=== PATIENT | female | born 1945 | race Caucasian/White ===

== ENCOUNTER → 2016-12-13 | Outpatient (CLI) | payer BC, MEDICARE ==
[~2016-12-13] MED LIST: ATIVAN0.5 MG PO; BENAZEPRIL HCL40 MG PO; HYDROCODON-ACE1 EAC5 PO; HYDROCODON-ACE1 EAC7 PO; LORAZEPAM0.5 MG PO; LORAZEPAM1 MG PO; NAPROSYN500 MG PO; NAPROXEN PO; NAPROXEN500 M1 PO; OLMESARTAN-HCT1 EAC1 PO; REQUIP3 MG PO; REQUIP4 MG PO
--- NOTE | ~2016-12-13 | CT55 ---
[facility] A Service of [facility] & [facility] RADIOLOGY TEXT RESULTS PATIENT: ULICES MISTRY LOCATION: [facility] : 46 UNIT #: [id number] AGE: [address]: Lc Shah MD SEX: F ORDER DR: [id number] [address] [address] [id number] O MR#: [id number] Acc #: [id number] NAME: ULICES MISTRY. : 1945 SEX: F STUDY DATE/TIME: 12/13/2016 12:35 UNIT: [facility] ROOM: STUDY DESCRIPTION: CT Chest W Con Attending Physician: Lc Shah M.D. Referring Physician: Lc Shah M.D. Ordering Physician: Lc Shah M.D. Primary Care Physician: Ron Soriano M.D. MEDICAL IMAGING REPORT This report is preliminary unless electronic signature is present. EXAM CT of the chest with contrast. INDICATIONS Abnormal chest radiograph demonstrating a pulmonary nodule. This radiograph from December 06, [address] exam was performed with one or more of the following radiation dose reduction techniques: automatic exposure control, adjustment of mA and/or kV according to patient size, and iterative reconstruction. FINDINGS Within the right upper lobe, this patient has a 2.4 x 2.1 cm nodule that has irregularly marginated borders and is worrisome for malignancy most likely primary bronchogenic. Background emphysematous changes are noted. 2 - 3 mm nodules are seen adjacent to the fissure. One within the right middle lobe and the other within the right lower lobe. No additional pulmonary nodules or masses are seen. There is no pleural or pericardial effusion. There is a heterogeneous appearance to the thyroid gland likely reflecting the presence of some underlying nodules. Thoracic aorta measures within normal size limits. There is no evidence of dissection. Mediastinal and hilar nodes do appear somewhat prominent, for example, a precarinal node measures 1.6 x 0.9 cm. Right hilar node measures 1.5 x 1.0 cm. These nodules are indeterminate in the setting of pulmonary mass. Images through the upper abdomen demonstrate a separate origin of the right hepatic artery from the celiac axis which is a normal anatomic variant. There is some atherosclerotic involvement of the abdominal aorta which extends into the origins of the renal arteries. No acute abnormalities are seen within the upper abdomen. Review of bony windows does not demonstrate any aggressive osseous abnormalities. [facility]. [facility] A Service of [facility] & [facility] RADIOLOGY TEXT RESULTS PATIENT: ULICES MISTRY LOCATION: [facility] : 46 UNIT #: [id number] AGE: [address]: Lc Shah MD SEX: F ORDER DR: IMPRESSION 1. This patient has an irregularly marginated nodule within the right upper lobe measuring up to 2.4 x 2.1 cm. Its appearance is extremely worrisome for malignancy, most likely primary bronchogenic given background emphysematous changes. There are some prominent mediastinal and hilar nodes which are indeterminate in the setting. Pulmonary mass PET may allow for further assessment. 2. Please see the body of the report for any other additional incidental findings. Dictated by... Batsheva Pérez M.D. THIS IS AN ELECTRONICALLY VERIFIED REPORT Batsheva Pérez M.D. at 12/15/2016 12:23 PM AFF/ea TD: 12/13/2016 19:24 JOB #: [id number] MEDICAL IMAGING REPORT Page 1 of 1
[2016-12-13 12:30] LABS: POC - CREATININE 0.68 mg/dL (0.44-1.03); POC - GFR >60.0 mL/min (>60)
== END | disposition home or self-care (01) ==
LOC: SCT 12:16
PROVIDERS: Family Medicine
DX: R91.1 Solitary pulmonary nodule (principal)
CPT/HCPCS: 71260; 82565; Q9967

== ENCOUNTER → 2017-01-09 | Outpatient (CLI) | payer BC, MEDICARE ==
--- NOTE | ~2017-01-09 | CT134 ---
[facility] A Service of [facility] & [facility] RADIOLOGY TEXT RESULTS PATIENT: ULICES MISTRY LOCATION: [facility] : 46 UNIT #: [id number] AGE: [address]: Salvador Myers MD SEX: F ORDER DR: [id number] [facility] [address] [place], [place] [address] [id number] O MR#: [id number] Acc #: [id number] NAME: ULICES MISTRY. : 1945 SEX: F STUDY DATE/TIME: 01/09/2017 10:51 UNIT: [facility] ROOM: STUDY DESCRIPTION: CT Guide Attending Physician: Salvador Myers M.D. Referring Physician: Salvador Myers M.D. Ordering Physician: Salvador Myers M.D. Primary Care Physician: Ron Soriano M.D. MEDICAL IMAGING REPORT This report is preliminary unless electronic signature is present EXAM CT-guided biopsy of a right T6 transverse process lesion 01/09/2017 INDICATIONS 71-year-old female with history of PET positive lung nodule and thoracic spine bone lesion with findings concerning for metastatic lung cancer. Biopsy of the lesion in T6 transverse process on the right was requested. MEDICATIONS: IV Versed and Fentanyl were utilized for conscious sedation. Approximately 45 minutes of sedation time was monitored by appropriately credentialed radiology nursing staff. PROCEDURE The risks, benefits and alternatives of the procedure were discussed with the patient and informed consent was obtained. In the procedure room a time-out was performed confirming correct patient and procedure. All elements of maximum sterile-barrier technique utilized according guidelines appropriate for the procedure. TECHNIQUE/FINDINGS The patient was placed in the prone position on the CT scanner and preliminary CT scan of thoracic spine was performed. This identified the mixed lytic and sclerotic lesion in the T6 vertebral body transverse process on the right. The overlying skin was prepped and draped in the usual sterile fashion. 1% lidocaine was utilized to anesthetize the skin and underlying subcutaneous tissues. Next under CT guidance an initial biopsy was performed using a Ostycut bone biopsy needle with return of some fragmented tissue which was sent to pathology. In order to try to get a better sample a second biopsy was performed using an 18-gauge core biopsy needle through a 17-gauge guide needle which also yielded some scant fragments of tissue. Tissue samples were submitted to pathology. The needles were removed and a sterile STS. [facility] A Service of [facility] RADIOLOGY TEXT RESULTS PATIENT: ULICES MISTRY LOCATION: [facility] : 46 UNIT #: [id number] AGE: [address]: Salvador Myers MD SEX: F ORDER DR: dressing was applied. The patient tolerated the procedure well without immediate complications. IMPRESSION Technically successful CT guided T6 transverse process bone biopsy. Dictated by... Zuhair Singleton M.D. THIS IS AN ELECTRONICALLY VERIFIED REPORT Zuhair Singleton M.D. at 01/10/2017 9:33 AM Amita TD: 01/09/2017 16:23 JOB #: [id number] MEDICAL IMAGING REPORT Page 1 of 1 COPY
--- NOTE | ~2017-01-09 | MR81 ---
[facility] A Service of [facility] & [facility] RADIOLOGY TEXT RESULTS PATIENT: ULICES MISTRY LOCATION: [facility] : 46 UNIT #: [id number] AGE: [address]: Salvador Myers MD SEX: F ORDER DR: [id number] [facility] [address] [place], [place] [address] [id number] O MR#: [id number] Acc #: [id number] NAME: ULICES MISTRY. : 1945 SEX: F STUDY DATE/TIME: 01/09/2017 8:22 UNIT: [facility] ROOM: STUDY DESCRIPTION: MR Hip WWo Contrast Rt Attending Physician: Salvador Myers M.D. Referring Physician: Salvador Myers M.D. Ordering Physician: Salvador Myers M.D. Primary Care Physician: Ron Soriano M.D. MRI CENTER REPORT This report is preliminary unless electronic signature is present. EXAM MRI of the hips and pelvis. HISTORY 71-year-old female with recently detected lung nodule. Abnormal PET/CT showing abnormal increased uptake about the right total hip arthroplasty. Currently has no pain in the hip region. COMPARISON STUDIES PET/CT 12/27/2016 and MRI of the pelvis 03/08/2013. FINDINGS Multiplanar, multiecho imaging was performed of the hips and pelvis utilizing a high field magnet and dedicated protocol. Metal artifact reduction sequences were employed. The patient demonstrates bilateral total hip arthroplasties. The left total hip arthroplasty appears in expected position and alignment. No significant periprosthetic fluid collections are identified. No evidence of edema. The right hip prosthesis demonstrates a moderate amount of cystic change and edema along the superior aspect of the acetabular component which does not appear significantly progressed from the patient's study in 2012. The acetabular component also does not appear significantly changed in position or alignment, though this should be correlated with conventional radiographs. The femoral component appears in expected position and alignment. There are 2 prominent fluid collections about the right total hip arthroplasty. 1 is anterior to the hip joint and is along the iliopsoas tendon and lies just medial to the tendon and deep to the femoral vessels. This collection was present on the patient's study in 2013 and is not significantly changed. This measures about 2.5 x 3.6 x about 3.3 cm in greatest transverse dimensions. This may represent a component of an iliopsoas bursitis. There is also a small amount of fluid lying directly anterior to the right hip arthroplasty at the level of the STS. [facility] A Service of [facility] RADIOLOGY TEXT RESULTS PATIENT: ULICES MISTRY LOCATION: [facility] : 46 UNIT #: [id number] AGE: [address]: Salvador Myers MD SEX: F ORDER DR: pseudocapsule and joint. A larger collection is seen within the anterior thigh, but probably communicates to the pseudocapsule. This collection measures a maximum of 3.6 x 4 cm in transverse dimensions and over 11 cm in cephalocaudal dimension. I suspect this represents fluid extending from the pseudocapsule of the arthroplasty and this does represent a new finding from the 2013 MRI but I suspect represents progression of the pseudocapsule joint effusion as seen in the 2013 study and the overall amount of fluid surrounding the hip arthroplasty appears increased relative to the 2013 study. Again, this could be related to underlying infection or loosening but no gross evidence of arthroplasty failure. Patient currently asymptomatic in this region. If elected, percutaneous aspiration of the proximal thigh fluid could be performed as this lies just deep to the sartorius and rectus femoris musculature. Interval healing of the patient's sacral and pubic symphysial fractures with no residual marrow edema. Internal pelvic structures unremarkable. Patient post hysterectomy. Mild atrophy of the right hip and gluteal musculature. IMPRESSION 1. Status post bilateral total hip arthroplasties. The left hip arthroplasty is unremarkable. The right hip arthroplasty demonstrates a moderate amount of cystic change along the weightbearing aspect of the right acetabulum which does not appear significantly increased from the 2013 MRI. As an isolated finding, this would be concerning for possible loosening of the acetabular component, but no gross evidence of instrumentation failure. Correlation with conventional radiographs may be better to assess overall alignment of the component. Clearly the femoral component appears intact. 2. Prominent fluid collections about the right total hip arthroplasty. An anterior collection along the iliopsoas tendon does not appear significantly changed from the 2013 study and may represent a component of iliopsoas bursitis or chronic collection. The fluid within the pseudocapsule as well as a prominent fluid collection tracking into the anterior proximal thigh is increased from the 2013 study. The thigh collection is clearly a new finding and is quite sizable and may account for the increased uptake on recent FDG PET scan. The fluid collections enhance postcontrast but this is a nonspecific finding around the joint. Again, as an isolated finding, this could support underlying loosening or possible infection of the arthroplasty component, though clinically the patient appears to be asymptomatic. If elected, aspiration of the thigh collection could be performed as this has relatively simple to access along the anterior thigh at its largest size measuring about 4 cm in greatest dimension. 3. No findings to suggest osseous metastatic disease to the pelvis. 4. Interval healing of the patient's sacral and symphysial fractures as noted on the 2013 study. [facility] A Service of [facility] RADIOLOGY TEXT RESULTS PATIENT: ULICES MISTRY LOCATION: [facility] : 46 UNIT #: [id number] AGE: [address]: Salvador Myers MD SEX: F ORDER DR: Dictated by... Valerie Singleton M.D. THIS IS AN ELECTRONICALLY VERIFIED REPORT Valerie Singleton M.D. at 01/13/2017 1:19 PM RADHIKA/masha TD: 01/13/2017 09:30 JOB #: [id number] MRI CENTER REPORT Page 1 of 1 COPY
[2017-01-09 09:50] LABS: HEMATOCRIT 34.7 % (35.0-45.0); HEMOGLOBIN 11.8 gm/dL (12.0-16.0); MEAN CELL VOLUME 86.4 FL (83-96); MEAN CORPUSCULAR HEMOGLOBIN 29.4 PG (28-34); MEAN PLATELET VOLUME 7.3 FL (6.5-11.5); RED BLOOD COUNT 4.02 X10e (3.90-5.30); RED CELL DISTRIBUTION WIDTH 14.8 % (11.0-15.5); WHITE BLOOD COUNT 6.6 X10e3 (4.0-10.5)
[2017-01-09 10:05] LABS: PARTIAL THROMBOPLASTIN TIME 27.2 SECONDS (23.5-31.3); PROTHROMBIN TIME (PATIENT) 10.5 SECONDS (9.6-11.5)
== END | disposition home or self-care (01) ==
LOC: CMRI 06:52
PROVIDERS: Internal Medicine Hematology & Oncology
DX: C79.51 Secondary malignant neoplasm of bone (principal); S32.10XD Unspecified fracture of sacrum, subsequent encounter for fracture with routine healing; S32.509D Unspecified fracture of unspecified pubis, subsequent encounter for fracture with routine healing; C34.90 Malignant neoplasm of unspecified part of unspecified bronchus or lung; M25.551 Pain in right hip; Z96.643 Presence of artificial hip joint, bilateral
CPT/HCPCS: 36415; 73723; 77012; 85027; 85610; 85730; 88173; 88307; 88342; A9577; J2250; J3010

== ENCOUNTER → 2017-01-15 | Outpatient (CLI) | payer BC, MEDICARE ==
--- NOTE | ~2017-01-15 | MR17 ---
[facility] A Service of [facility] & [facility] RADIOLOGY TEXT RESULTS PATIENT: ULICES MISTRY LOCATION: [facility] : 46 UNIT #: [id number] AGE: [address]: Salvador Myers MD SEX: F ORDER DR: [id number] [facility] [address] [place], [place] [address] [id number] O MR#: [id number] Acc #: [id number] NAME: ULICES MISTRY. : 1945 SEX: F STUDY DATE/TIME: 01/15/2017 16:26 UNIT: [facility] ROOM: STUDY DESCRIPTION: MR Brain WWo Contrast Attending Physician: Salvador Myers M.D. Referring Physician: Salvador Myers M.D. Ordering Physician: Salvador Myers M.D. Primary Care Physician: Ron Soriano M.D. MEDICAL IMAGING REPORT This report is preliminary unless electronic signature is present REVISED REPORT SEE ADDENDUM EXAM MRI of the brain with and without contrast dated 01/15/[address] head without contrast dated 03/08/2013. HISTORY Dizziness for 2 weeks. Patient was diagnosed with lung cancer 2 weeks ago. Evaluate for metastasis. FINDINGS Multi-sequence, multiplanar imaging of the brain was obtained with and without contrast. GFR measured greater than 60. 11 mL of MultiHance was administered intravenously. There is a peripherally enhancing 2.7 x 3.0 cm mass in the left frontotemporal region straddling the left sylvian fissure and sulcus. There is some peripheral hypointense varying signal change noted which could represent mild calcification or hemorrhage. There is surrounding vasogenic edema. Nonenhancing tiny 1-2 hyperintense T2 signal lesions are noted elsewhere in the white matter of bifrontal lobes. No acute stroke, hydrocephalus. There is midline shift to the right of 3 mm. Thick slices through the sella and the pituitary are within normal limits. Visualized cervical spine demonstrates anterior cervical fusion with hardware from C4 inferiorly, incompletely evaluated on the current study. S-shaped nasal septal deviation is seen. Paranasal sinuses, orbits and the ocular structures are unremarkable. Mild bilateral mastoid mucosal thickening is noted. [facility] A Service of [facility] RADIOLOGY TEXT RESULTS PATIENT: ULICES MISTRY LOCATION: [facility] : 46 UNIT #: [id number] AGE: [address]: Salvador Myers MD SEX: F ORDER DR: IMPRESSION 1. There is a mass with peripheral nodular enhancement measuring 2.7 x 3.0 x 2.5 cm in the left frontotemporal lobes straddling the left sylvian fissure and circular sulcus. It is in keeping with metastasis given the history of lung cancer. It has some decreased peripheral hypointense gradient signal. It could represent mild calcification or hemorrhage. 2. There is a 3 mm mild midline shift to the right. 3. Attempts are made to contact Dr. Salvador Myers at 3:30 p.m. on 01/16/2017. Dictated by... Conor Barreto M.D. CPR/aa TD: 01/16/2017 16:07 JOB #: [id number] ADDENDUM Findings were discussed with Dr. Terrell at 3:35 p.m.on 01/16/2017. JOB: [id number] Dictated by... Conor Barreto M.D. THIS IS AN ELECTRONICALLY VERIFIED REPORT Conor Barreto M.D. at 01/18/2017 12:50 PM CPR/pcl TD: 01/16/2017 16:12 JOB #: [id number] CC: Sovera/invision Please Delete MEDICAL IMAGING REPORT Page 1 of 1 COPY
== END | disposition home or self-care (01) ==
LOC: CMRI 15:20
DX: C34.90 Malignant neoplasm of unspecified part of unspecified bronchus or lung (principal); R91.1 Solitary pulmonary nodule; M25.551 Pain in right hip; M54.6 Pain in thoracic spine; G93.89 Other specified disorders of brain
CPT/HCPCS: 70553; A9577

== ENCOUNTER → 2017-01-21 | Outpatient (CLI) | payer BC, MEDICARE ==
--- NOTE | ~2017-01-21 | XA91 ---
[facility] A Service of [facility] RADIOLOGY TEXT RESULTS PATIENT: ULICES MISTRY LOCATION: [facility] : 47 UNIT #: [id number] AGE: [address]: Salvador Myers MD SEX: F ORDER DR: [id number] [facility] [address] [place], [place] [address] [id number] O MR#: [id number] Acc #: [id number] NAME: ULICES MISTRY. : 1945 SEX: F STUDY DATE/TIME: 01/21/2017 8:41 UNIT: [facility] ROOM: STUDY DESCRIPTION: XA CVC Tunneled W Port Attending Physician: Salvador Myers M.D. Ordering Physician: Salvador Myers M.D. Primary Care Physician: Ron Soriano M.D. MEDICAL IMAGING REPORT This report is preliminary unless electronic signature is present EXAM Mediport placement. INDICATIONS Metastatic lung cancer. Patient requires IV access for IV chemotherapy. The procedure's explained to the patient including risks, benefits, potential complications, potential for alternative forms of treatment. Informed consent was obtained and prior to initiating the procedure a formal time-out procedure was performed. Using all elements maximal sterile barrier technique including hand hygiene, caps, sterile gowns, gloves and masks, the right neck was prepped with 2% Chlorhexidine cutaneous antisepsis and covered with a large sheet. Real-time sterile ultrasound guidance was used to localize the right internal jugular vein which was found be patent and compressible. A hard copy ultrasound image was obtained. After local anesthesia with 1% Xylocaine the vein was punctured using real-time sterile ultrasound guidance and an 0.018 guidewire was advanced into the superior vena cava under fluoroscopic guidance. Micropuncture sheath was placed and J wire was advanced into the inferior vena cava. At this point I turned attention to creation of the port pocket. Skin and T8 tissues were anesthetized with buffered lidocaine and lidocaine with epinephrine. Small skin incision was made, port pocket was created using a combination of blunt and sharp dissection. Port was seated within the pocket and secured using 2 3-0 Vicryl sutures. Catheter was then tunneled up through the right anterolateral chest wall, to the insertion site of the neck. Peel-away sheath was advanced over the wire. Catheter was measured and trimmed and was advanced through the peel-away sheath and positioned within the superior vena cava. Following placement of the catheter it flushed and aspirated easily. Deep layer of the port pocket was closed using lathe puller 3-0 Vicryl sutures and a running 4-0 Monocryl suture was STS. [facility] A Service of [facility] RADIOLOGY TEXT RESULTS PATIENT: ULICES MISTRY LOCATION: [facility] : 46 UNIT #: [id number] AGE: [address]: Salvador Myers MD SEX: F ORDER DR: used close the skin. A single 4-0 Monocryl suture was used to close the insertion site at the neck and Dermabond was applied to both wounds to act as a dressing. Position of the catheter was confirmed with a radiographic image. Total fluoroscopy time 0.1 minutes AK was 1 mGy, patient did receive conscious sedation consisting of 7 mg of Versed and 150 mcg of Fentanyl. Continuous monitoring for a total 45 minutes was provided by the IVR nurse. ours IMPRESSION Successful placement right frontal jugular vein Mediport which terminates within the superior vena cava. This catheter is ready for immediate use. Dictated by... Batsheva Pérez M.D. THIS IS AN ELECTRONICALLY VERIFIED REPORT Batsheva Pérez M.D. at 01/22/2017 5:21 PM TROY/mauro TD: 01/22/2017 08:45 JOB #: [id number] MEDICAL IMAGING REPORT Page 1 of 1 COPY
[2017-01-21 08:07] LABS: HEMATOCRIT 36.6 % (35.0-45.0); HEMOGLOBIN 12.4 gm/dL (12.0-16.0); MEAN CELL VOLUME 87.1 FL (83-96); MEAN CORPUSCULAR HEMOGLOBIN 29.4 PG (28-34); MEAN CORPUSCULAR HGB CONC 33.7 g/dL (30-36); MEAN PLATELET VOLUME 7.8 FL (6.5-11.5); RED BLOOD COUNT 4.21 X10e (3.90-5.30); RED CELL DISTRIBUTION WIDTH 14.9 % (11.0-15.5); WHITE BLOOD COUNT 6.3 X10e3 (4.0-10.5)
[2017-01-21 08:23] LABS: PARTIAL THROMBOPLASTIN TIME 26.3 SECONDS (23.5-31.3); PROTHROMBIN TIME (PATIENT) 10.1 SECONDS (9.6-11.5)
== END | disposition home or self-care (01) ==
LOC: CIVR 07:40
PROVIDERS: Internal Medicine Hematology & Oncology
PROC: 02HV33Z Insertion of Infusion Device into Superior Vena Cava, Percutaneous Approach (ICD-10-PCS; principal; 2017-01-21)
DX: Z45.2 Encounter for adjustment and management of vascular access device (principal); R91.1 Solitary pulmonary nodule; M25.551 Pain in right hip; M54.6 Pain in thoracic spine; C34.12 Malignant neoplasm of upper lobe, left bronchus or lung; I10 Essential (primary) hypertension; M48.00 Spinal stenosis, site unspecified; F17.200 Nicotine dependence, unspecified, uncomplicated; M32.9 Systemic lupus erythematosus, unspecified; Z79.1 Long term (current) use of non-steroidal anti-inflammatories (NSAID); Z79.899 Other long term (current) drug therapy; Z80.6 Family history of leukemia; Z80.3 Family history of malignant neoplasm of breast; Z96.643 Presence of artificial hip joint, bilateral; Z88.0 Allergy status to penicillin
CPT/HCPCS: 36415; 76937; 77001; 85027; 85610; 85730; C1788; C1894; J1642; J2250; J3010

== ENCOUNTER → 2017-03-20 | Outpatient (CLI) | payer BC, MEDICARE ==
--- NOTE | ~2017-03-20 | CT5 ---
[facility] A Service of [facility] & [facility] RADIOLOGY TEXT RESULTS PATIENT: ULICES MISTRY [facility] : 46 UNIT #: [id number] AGE: [address]: Salvador Myers MD SEX: F ORDER DR: [id number] [facility] [address] [place], [place] [address] [id number] O MR#: [id number] Acc #: [id number] NAME: UILCES MISTRY : 1945 SEX: F STUDY DATE/TIME: 03/20/2017 9:06 UNIT: [facility] ROOM: STUDY DESCRIPTION: CT Abdomen W Cont Attending Physician: Salvador Myers M.D. Ordering Physician: Salvador Myers M.D. Primary Care Physician: Ron Soriano M.D. MEDICAL IMAGING REPORT This report is preliminary unless electronic signature is present EXAM CT abdomen with contrast. HISTORY 71-year-old female with a malignant neoplasm of the left upper lobe bronchus. Surveillance for metastatic disease. COMPARISON Head CT 12/27/2016 TECHNIQUE Axial images were performed through the abdomen following IV contrast. Oral contrast also administered. Multiplanar reconstructed images were reviewed at a work station. This CT exam was performed with one or more of the following radiation dose reduction techniques: automatic exposure control, adjustment of mA and/or kV according to patient size, and iterative reconstruction. FINDINGS Lung bases unremarkable. Liver, spleen, gallbladder, pancreas, kidneys and adrenal glands unremarkable. Visualized GI tract unremarkable. Mild aortoiliac atherosclerotic changes. Osseous structures remarkable for L4-5 degenerative disc disease and also L3-4 degenerative disc changes. Mild to moderate spinal stenosis L3-4, L4-5. Sclerotic bone lesion is seen within the L2 vertebral body to the left of midline, measuring about 9 mm, and there are 2 similar sclerotic lesions within the right iliac bone, the larger measuring 1.4 cm, and the smaller measuring about 9 mm. These could represent bone islands; however, in the setting of known malignancy, sclerotic metastasis is not excluded. These appear unchanged when compared to patient's PET/CT of 12/27/2016 and do not appear to be PET-avid, and, therefore, metastatic disease is considered less likely. IMPRESSION STS. [facility] A Service of [facility] RADIOLOGY TEXT RESULTS PATIENT: ULICES MISTRY LOCATION: [facility] : 46 UNIT #: [id number] AGE: [address]: Salvador Myers MD SEX: F ORDER DR: 1. No evidence of metastatic disease to the abdomen. 2. Stable sclerotic bone lesions, 2 in the right iliac bone and 1 within the L2 vertebral body. Their stability and lack of PET-avidity support a benign etiology. Dictated by... Valerie Singleton M.D. THIS IS AN ELECTRONICALLY VERIFIED REPORT aVlerie Singleton M.D. at 03/21/2017 7:26 AM RADHIKA/marti TD: 03/20/2017 18:57 JOB #: [id number] MEDICAL IMAGING REPORT Page 1 of 1 COPY
--- NOTE | ~2017-03-20 | CT55 ---
[facility] A Service of [facility] & [facility] RADIOLOGY TEXT RESULTS PATIENT: ULICES MISTRY LOCATION: [facility] : 47 UNIT #: [id number] AGE: [address]: Salvador Myers MD SEX: F ORDER DR: [id number] [facility] [address] [place], [place] [address] [id number] O MR#: [id number] Acc #: [id number] NAME: ULICES MISTRY. : 1945 SEX: F STUDY DATE/TIME: 03/20/2017 9:06 UNIT: [facility] ROOM: STUDY DESCRIPTION: CT Chest W Con Attending Physician: Salvador Myers M.D. Ordering Physician: Salvador Myers M.D. Primary Care Physician: Ron Soriano M.D. MEDICAL IMAGING REPORT This report is preliminary unless electronic signature is present EXAM CT scan of the chest with contrast INDICATION Malignant neoplasm of upper lobe left side. Pain in chest. Followup cancer. COMPARISON STUDIES 12/13/2016 TECHNIQUE The patient was given 100 mL of Isovue 370 and axial 5 mm images were obtained through the chest. Sagittal and coronal reconstructions were generated. This CT exam was performed with one or more of the following radiation dose reduction techniques: automatic exposure control, adjustment of mA and/or kV according to patient size, and iterative reconstruction. FINDINGS There is a edam-k-iovfmgiv present with its tip in the superior vena cava. There was a right upper lobe mass very close to the mediastinum that measured about 2 cm in diameter. That has decreased in size. Now there is some atelectasis extending anteriorly from this region and this obscures at least 1 border. I believe the mass is now 1.7 cm in size and the opposite direction it is about 1 cm whereas previously it was closer to 1.4. Atelectasis extends anteriorly from this lesion. There is a separate abdomen CT scan. There is a slightly enlarged lymph node in the pretracheal region. It is unchanged from the prior study. It is about 14 x 9 mm. The bones are unremarkable. The lungs are otherwise clear. IMPRESSION STS. [facility] A Service of [facility] & [facility] RADIOLOGY TEXT RESULTS PATIENT: ULICES MISTRY LOCATION: [facility] : [birth year] UNIT #: [id number] AGE: [address]: Salvador Myers MD SEX: F ORDER DR: 1. The right upper lobe mass noted 12/13/2016 has clearly diminished in size. I would estimate it is about 50% as big as it was previously. There is now some atelectasis extending anteriorly from the mass. 2. Stable slightly enlarged lymph node in the pretracheal region. 3. Otherwise the study is negative. Dictated by... Hitesh Seaman M.D. THIS IS AN ELECTRONICALLY VERIFIED REPORT Hitesh Seaman M.D. at 03/21/2017 9:42 AM William TD: 03/20/2017 18:43 JOB #: [id number] MEDICAL IMAGING REPORT Page 1 of 1 COPY
[2017-03-20 08:11] LABS: POC - CREATININE 0.86 mg/dL (0.44-1.03); POC - GFR >60.0 mL/min (>60)
== END | disposition home or self-care (01) ==
LOC: CCAT 07:33
PROVIDERS: Internal Medicine Hematology & Oncology
DX: C34.12 Malignant neoplasm of upper lobe, left bronchus or lung (principal); R91.1 Solitary pulmonary nodule; M89.9 Disorder of bone, unspecified; R59.9 Enlarged lymph nodes, unspecified
CPT/HCPCS: 71260; 74160; 82565; Q9967

== ENCOUNTER → 2017-04-17 | Outpatient (CLI) | payer BC, MEDICARE ==
--- NOTE | ~2017-04-17 | MR17 ---
[facility] A Service of [facility] RADIOLOGY TEXT RESULTS PATIENT: ULICES MISTRY LOCATION: [facility] : 46 UNIT #: [id number] AGE: [address]: Salvador Myers MD SEX: F ORDER DR: [id number] [facility] [address] [place], [place] [address] [id number] O MR#: [id number] Acc #: [id number] NAME: ULICES MISTRY. : 1945 SEX: F STUDY DATE/TIME: 04/17/2017 8:08 UNIT: [facility] ROOM: STUDY DESCRIPTION: MR Brain WWo Contrast Attending Physician: Salvador Myers M.D. Referring Physician: Salvador Myers M.D. Ordering Physician: Salvador Myers M.D. Primary Care Physician: Ron Soriano M.D. MRI CENTER REPORT This report is preliminary unless electronic signature is present. EXAM Brain MR with and without contrast 04/17/2017 COMPARISON Prior brain MRI dated 01/15/2017. PROCEDURE Routine brain MR with and without contrast. HISTORY History of lung cancer recently completed chemotherapy now with complaint of 1-week history of dizziness. Previously identified intracranial metastatic disease. FINDINGS Redemonstrated left temporal lobe mass. The lesion is rim-enhancing and somewhat cystic in appearance, and measures about 3.6 x 3.4 x 2.3 cm compared to about 3.2 x 2.8 x 2.3 cm previously. It appears slightly larger in size, and there is increased surrounding vasogenic edema. Rightward midline shift is stable at about 3-4 mm. No new lesions are seen. There is no evidence of intracranial hemorrhage. There is no evidence of acute ischemia. Patent flow voids are seen in the cerebral vessels. IMPRESSION Left temporal lobe cystic appearing presumed metastatic lesion with surrounding vasogenic edema both slightly larger in size and with mildly to moderately increased surrounding vasogenic edema. No new lesions are seen. [facility] A Service of [facility] RADIOLOGY TEXT RESULTS PATIENT: ULICES MISTRY LOCATION: [facility] : 46 UNIT #: [id number] AGE: [address]: Salvador Myers MD SEX: F ORDER DR: Dictated by... Osmany Farrar M.D. THIS IS AN ELECTRONICALLY VERIFIED REPORT Osmany Farrar M.D. at 04/22/2017 5:21 PM YANDEL/solomon TD: 04/18/2017 11:23 JOB #: [id number] MRI CENTER REPORT Page 1 of 1 COPY
== END | disposition home or self-care (01) ==
LOC: CMRI 07:47
DX: Z08 Encounter for follow-up examination after completed treatment for malignant neoplasm (principal); M54.6 Pain in thoracic spine; M25.551 Pain in right hip; R91.1 Solitary pulmonary nodule; G93.6 Cerebral edema; G93.0 Cerebral cysts; Z85.118 Personal history of other malignant neoplasm of bronchus and lung
CPT/HCPCS: 70553; A9577

== ENCOUNTER → 2017-05-20 | Outpatient (CLI) | payer BC, MEDICARE ==
--- NOTE | ~2017-05-20 | CT5 ---
[facility] A Service of [facility] & [facility] RADIOLOGY TEXT RESULTS PATIENT: ULICES MISTRY LOCATION: [facility] : 46 UNIT #: [id number] AGE: [address]: Salvador Myers MD SEX: F ORDER DR: [id number] [facility] [address] [place], [place] [address] [id number] O MR#: [id number] Acc #: [id number] NAME: ULICES MISTRY. : 1945 SEX: F STUDY DATE/TIME: 05/20/2017 11:00 UNIT: [facility] ROOM: STUDY DESCRIPTION: CT Abdomen W Cont Attending Physician: Salvador Myers M.D. Referring Physician: Salvador Myers M.D. Ordering Physician: Salvador Myers M.D. Primary Care Physician: Ron Soriano M.D. MEDICAL IMAGING REPORT This report is preliminary unless electronic signature is present EXAM CT abdomen with contrast. HISTORY 71-year-old female diagnosed with lung cancer January of 2015. Recently completed chemotherapy. Follow up and surveillance for recurrent or metastatic disease. COMPARISON CT abdomen, 03/20/2017. FINDINGS Axial images performed through the abdomen following IV contrast. Multiplanar reconstructed images reviewed. This CT exam was performed with one or more of the following radiation dose reduction techniques: automatic exposure control, adjustment of mA and/or kV according to patient size, and iterative reconstruction. The lung bases suggest emphysematous change. Small parenchymal opacity seen in the right lower lobe may represent a focal area of atelectasis or scarring. No mass lesions. Liver, spleen, gallbladder appear normal. Pancreas, kidneys and adrenal glands unremarkable. Visualized GI tract normal. Mild diffuse aortic atherosclerotic change. Renal artery calcifications noted. Stable sclerotic lesion within the left L2 vertebral body and also within the right iliac bone. Stability and appearance favors a benign etiology. Advanced L4-5 degenerative disc disease and lower lumbar spine facet arthropathy. IMPRESSION 1. No CT evidence of metastatic disease to the abdomen. 2. Stable sclerotic lesions within the L2 vertebral body and right iliac STS. [facility] A Service of [facility] & [facility] RADIOLOGY TEXT RESULTS PATIENT: ULICES MISTRY LOCATION: [facility] : 46 UNIT #: [id number] AGE: [address]: Salvador Myers MD SEX: F ORDER DR: bone, suggests a benign etiology. 3. L4-5 degenerative disc disease and lower lumbar spine facet arthropathy. Dictated by... Valerie Singleton M.D. THIS IS AN ELECTRONICALLY VERIFIED REPORT Valerie Singleton M.D. at 05/21/2017 5:18 PM Roger TD: 05/21/2017 16:52 JOB #: [id number] MEDICAL IMAGING REPORT Page 1 of 1 COPY
--- NOTE | ~2017-05-20 | CT55 ---
[facility] A Service of [facility] & [facility] RADIOLOGY TEXT RESULTS PATIENT: ULICES MISTRY LOCATION: [facility] : 46 UNIT #: [id number] AGE: [address]: Salvador Myers MD SEX: F ORDER DR: [id number] [facility] [address] [address] [id number] O MR#: [id number] Acc #: [id number] NAME: ULICES MISTRY. : 1945 SEX: F STUDY DATE/TIME: 05/20/2017 11:00 UNIT: [facility] ROOM: STUDY DESCRIPTION: CT Chest W Con Attending Physician: Salvador Myers M.D. Referring Physician: Salvador Myers M.D. Ordering Physician: Salvador Myers M.D. Primary Care Physician: Ron Soriano M.D. MEDICAL IMAGING REPORT This report is preliminary unless electronic signature is present EXAM CT chest with contrast 05/20/2017 1100 hours HISTORY 71-year-old woman with history of left upper lobe lung carcinoma first diagnosed in 2014. Patient received radiation therapy February 2017 and chemotherapy 3 weeks ago. Observation for suspected malignant neoplasm. Evaluate response to interval therapy. COMPARISON CT chest 03/20/[address] images were obtained from the thoracic inlet through the adrenal glands. Sagittal and coronal reconstructions were performed. Contrast was Isovue-370, 100 mL IV. Total exam DLP for the chest and abdomen study today is 674 mGy-cm. This CT exam was performed with one or more of the following radiation dose reduction techniques: Automatic exposure control, adjustment of mA and/or kV according to patient size, and iterative reconstruction. FINDINGS Images through the thoracic inlet demonstrate a right-sided port catheter with tip in SVC. There is no thyroid lesion. There is a 1 cm precarinal node, but no enlarged nodes are seen. There is stable ectasia of the ascending aorta measuring 3.6 cm with no dissection. There is no pericardial or pleural fluid. Lung window images demonstrate underlying centrilobular emphysema, which is moderate. No large blebs or bullae are seen. In the previous area of the mass in the right lung abutting the pleura adjacent to the SVC, there is now an ovoid to band-like density, likely some atelectasis. This could STS. [facility] A Service of [facility] RADIOLOGY TEXT RESULTS PATIENT: ULICES MISTRY LOCATION: [facility] : 46 UNIT #: [id number] AGE: [address]: Salvador Myers MD SEX: F ORDER DR: be obscuring the nodule. There is likely residual 1.7 cm nodule unchanged from 03/20/2017. The atelectasis distal to this is unchanged. There is a micronodule in the right middle lobe on image 32, unchanged. No new densities are seen. There is no pleural fluid. Please see report of CT abdomen and pelvis for findings below the hemidiaphragms. IMPRESSION 1. Chest CT is not appreciably changed from 03/20/2017. There is a residual nodular density in the medial right lung just anterior to the SVC measuring 1.7 cm, unchanged. There is some band-like atelectasis extending peripheral from this nodule anterolaterally, which is also unchanged. 2. There is a 1-2 mm micronodule in the right middle lobe, unchanged. No new or developing densities are seen. There is no pathologic adenopathy or pleural effusion. Dictated by... Riana Riley M.D. THIS IS AN ELECTRONICALLY VERIFIED REPORT Riana Riley M.D. at 05/22/2017 9:25 AM NED/jaye TD: 05/21/2017 16:42 JOB #: [id number] MEDICAL IMAGING REPORT Page 1 of 1 COPY
[2017-05-20 11:16] LABS: POC - CREATININE 0.94 mg/dL (0.44-1.03); POC - GFR >60.0 mL/min (>60)
== END | disposition home or self-care (01) ==
LOC: CCAT 09:12
PROVIDERS: Internal Medicine Hematology & Oncology
DX: C34.12 Malignant neoplasm of upper lobe, left bronchus or lung (principal); M54.6 Pain in thoracic spine; M25.551 Pain in right hip; R91.1 Solitary pulmonary nodule; R91.8 Other nonspecific abnormal finding of lung field; M51.36 Other intervertebral disc degeneration, lumbar region; M46.96 Unspecified inflammatory spondylopathy, lumbar region; M89.9 Disorder of bone, unspecified
CPT/HCPCS: 71260; 74160; 82565; Q9967